=== PATIENT | female | born 1990 | race African-American/Black ===

== ENCOUNTER 2017-12-24 12:52 | Emergency (ER) | payer MEDICAID ==
[~2017-12-24] VITALS: Ht 162.6 cm; Wt 106.7 kg
[2017-12-24] MEDS ORDERED: IBUPROFEN 600MG TABLET PO ONE (15:00)
[2017-12-24 15:06] VITALS: BP 129/87
== END 2017-12-24 16:17 | disposition home or self-care (01) ==
LOC: ER 12:52
DX: M25.561 Pain in right knee (principal); V49.9XXA Car occupant (driver) (passenger) injured in unspecified traffic accident, initial encounter; Y93.89 Activity, other specified; Y92.89 Other specified places as the place of occurrence of the external cause; Y99.8 Other external cause status
CPT/HCPCS: 73562; 81025; 99284